=== PATIENT | female | born 1960 | race Caucasian/White ===

== ENCOUNTER → 2021-01-10 08:13 | Outpatient (CLI) | payer OTHER, SELFPAY ==
[2021-01-10 09:22] LABS: Hemoglobin A1C% w Est Avg Glu 5.1 % (4.0-6.0)
[2021-01-10 09:33] LABS: Creatine Kinase 123 U/L (30-135); Lactate (Lactic Acid) 0.8 mmol/L (0.7-2.1)
[2021-01-10 10:03] LABS: TSH w/ Reflex to FT4 3.96 uIU/mL (0.47-4.68)
[2021-01-10 10:23] LABS: Vitamin B12 495 pg/mL (239-931)
[2021-01-11 17:42] LABS: Treponema pallidum Antibodies Non Reactive (Non Reactive)
[2021-01-12 13:16] LABS: Aldolase 7.4 U/L (3.3-10.3)
[2021-01-12 14:08] LABS: ANA Screen, IFA Negative (.); Alpha 1 Globulin 0.2 g/dL (0.0-0.4); Alpha 2 Globulin 0.7 g/dL (0.4-1.0); Beta 1 Globulin 1.1 g/dL (0.7-1.3); Gamma Globulin 1.3 g/dL (0.4-1.8); Protein, Total 7.3 g/dL (6.0-8.5)
[2021-01-13 12:07] LABS: Gamma-Tocopherol 2.9 mg/L (0.5-4.9)
[2021-01-13 18:04] LABS: Antimyeloperoxidase AB <9.0 U/mL (0.0-9.0); Antiproteinase 3 AB 8.8 U/mL (0.0-3.5); Atypical P-ANCA Titer <1:20 titer (Neg:<1:20); C-ANCA Titer <1:20 titer (Neg:<1:20); P-ANCA Titer <1:20 titer (Neg:<1:20)
== END ==
PROVIDERS: PCP Family Medicine; Referring Provider Psychiatry & Neurology Neuromuscular Medicine; Visit Provider Psychiatry & Neurology Neuromuscular Medicine
DX: R27.8 Other lack of coordination (principal)
CPT/HCPCS: 36415; 82085; 82525; 82550; 82607; 82784; 83036; 83516; 83519; 83520; 83605; 84155; 84165; 84443; 84446; 86038; 86255; 86256; 86780

== ENCOUNTER 2023-03-21 13:52 | Emergency (ER) | payer OTHER, SELFPAY ==
[2023-03-21 14:07] VITALS: BP 182/76; PULSE 96; RESP 18; TEMP 36.5; O2SAT 100; BMI 25.5
--- NOTE | 2023-03-21 14:16 | ED_ITS ---
HPI - Abdominal Pain <Yann Jacobson PA-C - Last Filed: 03/21/23 16:25> General Chief Complaint: Abdominal Pain Stated Complaint: fever, abdominal pain Time Seen by Provider: 03/21/23 14:16 Source: patient Mode of arrival: Ambulatory History of Present Illness HPI narrative: This is a 62-year-old female presents emergency department due to intermittent epigastric abdominal pain for the last year with intermittent episodes she would. She states that she was usually able to ?calm down? the episodes after not eating for a couple of days. She states that this episode is slightly more severe with some nausea as well as fevers of 102? F. Denies any diarrhea constipation. Denies any significant chest pain or shortness of breath. Denies any gastrointestinal surgeries. States it feels like a burning sensation in her epigastric area as well as occasionally in the left upper quadrant. Related Data Previous Rx's Medication Instructions Recorded ondansetron HCl 4 mg tablet 4 mg PO Q8H PRN nausea and 03/21/23 vomiting #20 tabs pantoprazole 40 mg tablet,delayed 40 mg PO DAILY #14 tabs 03/21/23 release Allergies Allergy/AdvReac Type Severity Reaction Status Date / Time Sulfa (Sulfonamide Allergy Intermediate Hives Verified 03/21/23 16:38 Antibiotics) Review of Systems <VINOD Damian Last Filed: 03/21/23 16:25> Review of Systems Narrative: GENERAL: Reports fevers Denies chills, fatigue, malaise, , sweats. HEENT: Denies sinus pain, ear pain, sore throat, difficulty swallowing, dizziness. RESPIRATORY: Denies dyspnea, cough, wheezing, hemoptysis, sputum. CARDIOVASCULAR: Denies chest pain, palpitations, orthopnea, edema, GASTROINTESTINAL: Reports abdominal pain nausea, Denies , vomiting, in, diarrhea, constipation, melena. : Denies dysuria, frequency, incontinence, hematuria, urinary retention. MUSCULOSKELETAL: denies weakness, joint pain, or bony pain SKIN: Denies rash, skin lesions, or other NEUROLOGIC: Denies weakness, headache, numbness, change in speech, confusion, seizures, incoordination. PSYCHIATRIC: No concerning psychosocial issues. 12 point review of systems is negative except for those stated above Patient History <VINOD Damian Last Filed: 03/21/23 16:25> Social History Smoking Status: Unknown if ever smoked Smoking Status: Unknown if ever smoked alcohol intake frequency: other Substance Use Type: does not use Exam <Yann Jacobson PA-C - Last Filed: 03/21/23 16:25> Narrative Exam Narrative: GENERAL: Well-developed patient, in mild distress. HEAD: Atraumatic. Normocephalic. EYES: Pupils equal round and reactive. Extraocular motions intact. No scleral icterus. No injection or drainage. ENT: Nose without bleeding, purulent drainage. Throat without erythema, tonsillar hypertrophy or exudate. Airway patent. NECK: Trachea midline. Non tender EXTREMITIES: No edema or joint tenderness. NEURO: AOx3. SKIN: No rash or erythema of visible areas CARDIOVASCULAR: Regular rate and rhythm without murmurs, gallops, or rubs. RESPIRATORY: Clear to auscultation. Breath sounds equal bilaterally. No wheezes, rales, or rhonchi. GASTROINTESTINAL: Mild tenderness to palpation to left upper quadrant BACK: Nontender without deformity or crepitance. No flank tenderness. Initial Vital Signs Initial Vital Signs: Vital Signs Temperature 97.7 F 03/21/23 14:07 Pulse Rate 96 H 03/21/23 14:07 Respiratory Rate 18 03/21/23 14:07 Blood Pressure 182/76 H 03/21/23 14:07 Pulse Oximetry 100 03/21/23 14:07 Oxygen Delivery Method Room Air 03/21/23 14:07 <Quita Ball MD - Last Filed: 03/21/23 17:04> Initial Vital Signs Initial Vital Signs: Vital Signs Temperature 97.7 F 03/21/23 14:07 Pulse Rate 96 H 03/21/23 14:07 Respiratory Rate 18 03/21/23 14:07 Blood Pressure 182/76 H 03/21/23 14:07 Pulse Oximetry 100 03/21/23 14:07 Oxygen Delivery Method Room Air 03/21/23 14:07 Course <Yann Jacobson PA-C - Last Filed: 03/21/23 16:25> Orders Ordered: ED Orders 03/21/23 14:15 US abdomen limited Stat 03/21/23 14:45 Complete Blood Count AUTO DIFF Stat Comprehensive Metabolic Panel Stat Lipase Stat 03/21/23 14:50 CT abdomen pelvis w con Stat 03/21/23 14:59 EKG-12 Lead Stat 03/21/23 15:36 Urine Microscopic Stat Discontinued Medications Ondansetron HCl (Ondansetron 4 Mg Odt) 4 mg PO NOW PRN PRN Reason: Nausea And Vomiting Ondansetron HCl (Ondansetron 4 Mg/2 Ml Inj) 4 mg IV NOW PRN PRN Reason: Nausea And Vomiting Consultations Consultation #1: [id number]: Verbal report from technical product manager stated normal gallbladder exam. Vital Signs Vital signs: Vital Signs - 8 hr 03/21/23 14:07 03/21/23 15:52 Temperature 97.7 F Pulse Rate 96 H 84 Respiratory Rate 18 16 Blood Pressure 182/76 H 127/72 Pulse Oximetry 100 97 Oxygen Delivery Method Room Air Room Air <Quita Ball MD - Last Filed: 03/21/23 17:04> Orders Ordered: ED Orders 03/21/23 14:15 US abdomen limited Stat 03/21/23 14:45 Complete Blood Count AUTO DIFF Stat Comprehensive Metabolic Panel Stat Lipase Stat 03/21/23 14:50 CT abdomen pelvis w con Stat 03/21/23 14:59 EKG-12 Lead Stat 03/21/23 15:36 Urine Microscopic Stat Discontinued Medications Ondansetron HCl (Ondansetron 4 Mg Odt) 4 mg PO NOW PRN PRN Reason: Nausea And Vomiting Ondansetron HCl (Ondansetron 4 Mg/2 Ml Inj) 4 mg IV NOW PRN PRN Reason: Nausea And Vomiting Vital Signs Vital signs: Vital Signs - 8 hr 03/21/23 14:07 03/21/23 15:52 Temperature 97.7 F Pulse Rate 96 H 84 Respiratory Rate 18 16 Blood Pressure 182/76 H 127/72 Pulse Oximetry 100 97 Oxygen Delivery Method Room Air Room Air MDM - Abdominal Pain <Yann Jacobson PA-C - Last Filed: 03/21/23 16:25> Lab Data 03/21/23 14:45 03/21/23 14:45 Labs: Lab Results 03/21/23 03/21/23 Range/Units 14:45 15:36 WBC 2.5 L (4.5-11.0) X10^3/uL RBC 4.78 (4.0-5.2) X10^6/uL Hgb 14.5 (12.0-16.0) g/dL Hct 41.8 (36-46) % MCV 87.4 (80-100) fL MCH 30.4 (26-34) PG MCHC 34.8 (30-36) % RDW 13.1 (11.6-14.8) % Plt Count 125 L (150-400) X10^3/uL Neut % (Auto) Not Reportable Lymph % (Auto) Not Reportable [place] % (Auto) Not Reportable Eos % (Auto) Not Reportable Baso % (Auto) Not Reportable Lymph # (Auto) Not Reportable [place] # (Auto) Not Reportable Baso # (Auto) Not Reportable Total Counted 100 Seg Neutrophils % 54.0 (38-70) % Lymphocytes % (Manual) 34.0 (25-45) % Monocytes % (Manual) 11.0 (2-11) % Basophils % (Manual) 1.0 (0-1) % Neutrophils # (Manual) 1350 L (6860-7418) /uL Platelet Estimate Decreased on smear RBC Morphology Normal morphology Sodium 136 L (137-145) mmol/L Potassium 3.8 (3.4-5.1) mmol/L Chloride 101 (98-107) mmol/L Carbon Dioxide 25 (22-32) mmol/L BUN 19 H (7-17) mg/dL Creatinine 0.74 (0.52-1.04) mg/dL Estimated GFR > 60 (>60) mL/min BUN/Creatinine Ratio 25.7 H (6-22) Glucose 88 (80-110) mg/dL Calcium 9.6 (8.4-10.2) mg/dL Total Bilirubin 1.0 (0.2-1.3) mg/dL AST 74 H (14-36) IU/L ALT 63 H (<35) IU/L Alkaline Phosphatase 82 (38-126) U/L Total Protein 8.4 H (6.3-8.2) g/dL Albumin 4.6 (3.5-5.0) g/dL Globulin 3.8 (1.7-4.1) g/dL Albumin/Globulin Ratio 1.2 (1.0-2.8) Lipase 76 (23-300) U/L Urine RBC 0-1/hpf (0-5/HPF) Urine WBC 0-1/hpf (0-5/HPF) Ur Squamous Epith Cells 5-10 /hpf H (0-5/HPF) Urine Bacteria Occasional (0-1) (None) Hyaline Casts 1-5/lpf (None) Urine Mucus 2+ H (Negative) Ur Culture Indicated? Cult not indicated Point of care testing: Urine Dip Bedside Urine Glucose Negative Bedside Urine Bilirubin - Negative Bedside Urine Ketone + 15 Urine Specific [place] 1.030 Bedside Urine Occult Blood - Negative Bedside Urine pH 6.0 Bedside Urine Protein - Negative Bedside Urine Urobilinogen - Negative Bedside Urine Nitrite - Negative Bedside Urine Leukocytes - Negative Esterase Imaging Data US - abdomen: Radiologist's Impression: [address] [address] Ultrasound Report Signed Patient: Jesusita Ruiz MR#: [id number] : 1960 Acct:[id number] Age/Sex: 62 / F Date of Service: 03/21/23 Loc: ED Accession Number: [id number] Procedure: US abdomen limited Ordering Provider: Yann Jacobson P.A-C PROCEDURE: US ABDOMEN LIMITED INDICATIONS: RUQ pain, r/o cholecystitis TECHNIQUE: Real-time scanning was performed of the abdominal and retroperitoneal organs, with image documentation. COMPARISON: None. FINDINGS: Liver: Liver is normal in size and homogeneous in echotexture. Liver parenchyma is mildly diffusely echogenic. Main portal vein is patent with hepatopedal flow. Gallbladder: No gallstones. No wall thickening. No pericholecystic edema. Negative sonographic Cisneros's sign. Biliary ducts: Intrahepatic bile ducts are non-dilated. Extrahepatic bile duct caliber measures 6 mm. Normal is 6-7 mm or less in diameter, or 10 mm or less post-cholecystectomy. Pancreas: Not well seen secondary to bowel gas. Right Kidney: Normal in size and echotexture, without hydronephrosis. No solid masses. IVC: Intrahepatic inferior vena cava is patent where visualized. Miscellaneous: No free abdominal fluid. IMPRESSION: 1. No sonographic evidence acute cholecystitis or sonographic findings to explain patient's pain. 2. Liver parenchyma is mildly echogenic which may be seen in the setting of parenchymal disease such as steatosis. Dictated by: Shun Wallace M.D. on 03/21/2023 at 15:00 Approved by: Shun Wallace M.D. on 03/21/2023 at 15:02 CT scan - abdomen/pelvis: Radiologist's Impression: [address] [address] [address] Scan Report Signed Patient: Jesusita Ruiz MR#: [id number] : 1960 Acct:[id number] Age/Sex: 62 / F Date of Service: 03/21/23 Loc: ED Accession Number: [id number] Procedure: CT abdomen pelvis w con Ordering Provider: Yann Jacobson P.A-C PROCEDURE: CT ABDOMEN PELVIS W CON INDICATIONS: Epigastric abdominal pain TECHNIQUE: After the administration of intravenous contrast, axial sections acquired from the lung bases to the pubic symphysis. Coronal and sagittal reformats were performed. For radiation dose reduction, the following was used: automated exposure control, adjustment of mA and/or kV according to patient size. COMPARISON: None. FINDINGS: Image quality: Diagnostic. Lower Chest: No significant findings. ABDOMEN: Liver: Low-density 13 mm focus within the medial segment left hepatic lobe with possible vague multinodular peripheral enhancement. Gallbladder: No radiopaque gallstones or wall thickening. Biliary ducts: No biliary dilation. Pancreas: No ductal dilation. Spleen: Size is within normal limits. Adrenal Glands: No adrenal nodules. Kidneys and Ureters: No hydronephrosis. No solid mass. No complex renal cystic lesion which requires follow up. Stomach and Bowel: Small hiatal hernia. Stomach and small bowel are within normal limits. Appendix is normal. Colon is nondistended. Peritoneum: No abnormal intraperitoneal fluid. No free air. Ventral Wall: No hernia. Abdominal Nodes: No retroperitoneal or mesenteric adenopathy by size criteria. Vessels: Aorta and inferior vena cava are normal in size. PELVIS: Pelvic Organs: Unremarkable. Bladder: Decompressed. Pelvic Nodes: No enlarged lymph nodes. Miscellaneous: No inguinal hernias are seen. Bones: No aggressive osseous abnormality. IMPRESSION: 1. No acute process. 2. Normal appendix. 3. Possible left hepatic lobe hemangioma. Initial further assessment with nonemergent outpatient follow-up liver protocol MRI is recommended to rule out less likely, more aggressive etiologies. 4. Small hiatal hernia. Dictated by: Senia Renee M.D. on 03/21/2023 at 15:48 Approved by: Senia Renee M.D. on 03/21/2023 at 15:52 MDM Narrative Medical decision making narrative: ED course: This is a 62-year-old female presents for department due to intermittent abdominal pain for the last year. During triage patient stated that she would right upper quadrant abdominal pain and abdominal ultrasound was ordered which was unremarkable. During my exam patient did not describe any right upper quadrant abdominal pain although did describe some epigastric and left upper quadrant abdominal pain. Shared decision-making utilized and CT abdomen and pelvis ordered which showed no acute findings but did show a possible liver hemangioma which I recommended she follow up with the primary care provider for outpatient workup. Lab work today was reassuring. Did show mild leukopenia as well as thrombocytopenia which I recommended she follow up with the primary care provider as well. Based on clinical description of symptoms may be due to a possible ulcer. Pantoprazole trial prescribed. Lipase within normal limits CC: Abdominal pain Complicating co-morbidities: None Data collected from: Previous notes Medical records reviewed: Patient has not been to this emergency department in the past. Differential considered, but not limited to: Cholecystitis, pancreatitis, peptic ulcer disease Exam documented above, pertinent findings include: Left upper quadrant epigastric tenderness to palpation Lab Test results independently reviewed as above. Pertinent findings: As above Imaging studies independently reviewed: Right upper quadrant ultrasound negative for any gallbladder abnormalities. CT abdomen and pelvis reassuring showed no acute findings Scores Used: None MIPS Elements: None Consultations: None Treatments: None Re-evaluations: None Discussion: Discussed plan with the patient was comfortable with the plan Diagnosis: Abdominal pain Disposition: see below, along with detailed discharge instructions that have been reviewed with patient as well as indications for ED re-evaluation and additional outpatient follow up <Quita Ball MD - Last Filed: 03/21/23 17:04> Lab Data Labs: Lab Results 03/21/23 03/21/23 Range/Units 14:45 15:36 WBC 2.5 L (4.5-11.0) X10^3/uL RBC 4.78 (4.0-5.2) X10^6/uL Hgb 14.5 (12.0-16.0) g/dL Hct 41.8 (36-46) % MCV 87.4 (80-100) fL MCH 30.4 (26-34) PG MCHC 34.8 (30-36) % RDW 13.1 (11.6-14.8) % Plt Count 125 L (150-400) X10^3/uL Neut % (Auto) Not Reportable Lymph % (Auto) Not Reportable [place] % (Auto) Not Reportable Eos % (Auto) Not Reportable Baso % (Auto) Not Reportable Lymph # (Auto) Not Reportable [place] # (Auto) Not Reportable Baso # (Auto) Not Reportable Total Counted 100 Seg Neutrophils % 54.0 (38-70) % Lymphocytes % (Manual) 34.0 (25-45) % Monocytes % (Manual) 11.0 (2-11) % Basophils % (Manual) 1.0 (0-1) % Neutrophils # (Manual) 1350 L (3834-4998) /uL Platelet Estimate Decreased on smear RBC Morphology Normal morphology Sodium 136 L (137-145) mmol/L Potassium 3.8 (3.4-5.1) mmol/L Chloride 101 (98-107) mmol/L Carbon Dioxide 25 (22-32) mmol/L BUN 19 H (7-17) mg/dL Creatinine 0.74 (0.52-1.04) mg/dL Estimated GFR > 60 (>60) mL/min BUN/Creatinine Ratio 25.7 H (6-22) Glucose 88 (80-110) mg/dL Calcium 9.6 (8.4-10.2) mg/dL Total Bilirubin 1.0 (0.2-1.3) mg/dL AST 74 H (14-36) IU/L ALT 63 H (<35) IU/L Alkaline Phosphatase 82 (38-126) U/L Total Protein 8.4 H (6.3-8.2) g/dL Albumin 4.6 (3.5-5.0) g/dL Globulin 3.8 (1.7-4.1) g/dL Albumin/Globulin Ratio 1.2 (1.0-2.8) Lipase 76 (23-300) U/L Urine RBC 0-1/hpf (0-5/HPF) Urine WBC 0-1/hpf (0-5/HPF) Ur Squamous Epith Cells 5-10 /hpf H (0-5/HPF) Urine Bacteria Occasional (0-1) (None) Hyaline Casts 1-5/lpf (None) Urine Mucus 2+ H (Negative) Ur Culture Indicated? Cult not indicated Point of care testing: Urine Dip Bedside Urine Glucose Negative Bedside Urine Bilirubin - Negative Bedside Urine Ketone + 15 Urine Specific [place] 1.030 Bedside Urine Occult Blood - Negative Bedside Urine pH 6.0 Bedside Urine Protein - Negative Bedside Urine Urobilinogen - Negative Bedside Urine Nitrite - Negative Bedside Urine Leukocytes - Negative Esterase Discharge Plan Departure Patient Disposition: Home Clinical Impression: Abdominal pain Activity Restrictions/Additional Instructions: Thank you for coming to the [facility] Emergency Department today. As we discussed your ultrasound showed no evidence of any kind of gallbladder abnormality. Your CT abdomen and pelvis showed no acute emergent findings. It did note a small ?hemangioma on your liver that would benefit from outpatient workup. Please discussed with the primary care provider for possible further workup. As we discussed your white blood cell count as well as platelet counts appeared to be a little lower than the normal ranges. This maybe chronic for you. Please also discuss this with the primary care provider for further workup. Your other lab work today was unremarkable. As we discussed the symptoms maybe due to a possible ulcer. You may take the medication as prescribed to see if this helps with your symptoms. Please return to the emergency department if you develop any significant worsening abdominal pain or any other concerning signs or symptoms. I hope you feel better soon. Please follow up with your primary care provider within a week if your symptoms continue. If you do not have a primary care provider please contact the [facility] Resource line at [phone]. They will ask some questions about your medical history and help you get set up with a provider in the community. Prescriptions: New pantoprazole 40 mg tablet,delayed release (DR/EC) 40 mg PO DAILY Qty: 14 0RF ondansetron HCl 4 mg tablet 4 mg PO Q8H PRN (Reason: nausea and vomiting) Qty: 20 0RF Referrals: Miscellaneous,DoctorMD [Primary Care Provider] - Stand Alone Forms: Patient Portal/API ED Sign-out <Quita Ball MD - Last Filed: 03/21/23 17:04> Cosign ED Attending Virgenature Attestation: I did not see this patient. I was available all times for consultation.
--- NOTE | 2023-03-21 14:50 | DI.CT.S_ITS ---
PROCEDURE: CT ABDOMEN PELVIS W CON INDICATIONS: Epigastric abdominal pain TECHNIQUE: After the administration of intravenous contrast, axial sections acquired from the lung bases to the pubic symphysis. Coronal and sagittal reformats were performed. For radiation dose reduction, the following was used: automated exposure control, adjustment of mA and/or kV according to patient size. COMPARISON: None. FINDINGS: Image quality: Diagnostic. Lower Chest: No significant findings. ABDOMEN: Liver: Low-density 13 mm focus within the medial segment left hepatic lobe with possible vague multinodular peripheral enhancement. Gallbladder: No radiopaque gallstones or wall thickening. Biliary ducts: No biliary dilation. Pancreas: No ductal dilation. Spleen: Size is within normal limits. Adrenal Glands: No adrenal nodules. Kidneys and Ureters: No hydronephrosis. No solid mass. No complex renal cystic lesion which requires follow up. Stomach and Bowel: Small hiatal hernia. Stomach and small bowel are within normal limits. Appendix is normal. Colon is nondistended. Peritoneum: No abnormal intraperitoneal fluid. No free air. Ventral Wall: No hernia. Abdominal Nodes: No retroperitoneal or mesenteric adenopathy by size criteria. Vessels: Aorta and inferior vena cava are normal in size. PELVIS: Pelvic Organs: Unremarkable. Bladder: Decompressed. Pelvic Nodes: No enlarged lymph nodes. Miscellaneous: No inguinal hernias are seen. Bones: No aggressive osseous abnormality. IMPRESSION: 1. No acute process. 2. Normal appendix. 3. Possible left hepatic lobe hemangioma. Initial further assessment with nonemergent outpatient follow-up liver protocol MRI is recommended to rule out less likely, more aggressive etiologies. 4. Small hiatal hernia. Dictated by: Senia Renee M.D. on 03/21/2023 at 15:48 Approved by: Senia Renee M.D. on 03/21/2023 at 15:52
[2023-03-21 14:57] LABS: Hematocrit 41.8 % (36-46); Hemoglobin 14.5 g/dL (12.0-16.0); Mean Corpuscular HGB Conc 34.8 % (30-36); Mean Corpuscular Hemoglobin 30.4 PG (26-34); Mean Corpuscular Volume 87.4 fL (80-100); Platelet Count 125 X10^3/uL (150-400); Red Blood Cell Count 4.78 X10^6/uL (4.0-5.2); Red Cell Distribution Width 13.1 % (11.6-14.8); White Blood Cell Count 2.5 X10^3/uL (4.5-11.0)
[2023-03-21 15:04] LABS: Add Manual Diff / Slide Review YES
[2023-03-21 15:21] LABS: Alanine Aminotransferase 63 IU/L (<35); Albumin 4.6 g/dL (3.5-5.0); Albumin Globulin Ratio 1.2 (1.0-2.8); Alkaline Phosphatase 82 U/L (38-126); Aspartate Aminotransferase 74 IU/L (14-36); BUN Creatinine Ratio 25.7 (6-22); Blood Urea Nitrogen 19 mg/dL (7-17); Calcium 9.6 mg/dL (8.4-10.2); Carbon Dioxide 25 mmol/L (22-32); Chloride 101 mmol/L (98-107); Estimated Glomerular Filt Rate > 60 mL/min (>60); Globulin 3.8 g/dL (1.7-4.1); Glucose 88 mg/dL (80-110); HEMOLYSIS < 15 (0-50); Lipase 76 U/L (23-300); Potassium 3.8 mmol/L (3.4-5.1); Sodium 136 mmol/L (137-145); Total Protein 8.4 g/dL (6.3-8.2)
[2023-03-21 15:51] LABS: Bacteria Urine Occasional (0-1); Culture Indicated Urine Cult Not Indicated; Hyaline Casts Urine 1-5/LPF; Mucus Urine 2+ (Negative); RBC Urine 0-1/HPF (0-5/HPF); Squamous Epithelial Cell Urine 5-10 /HPF (0-5/HPF); WBC Urine 0-1/HPF (0-5/HPF)
[2023-03-21 15:52] VITALS: BP 127/72; PULSE 84; RESP 16; O2SAT 97
[2023-03-21 16:33] LABS: Neutrophils Absolute Manual 1350 /uL (3000-5900); Total Cells Counted 100
[2023-03-21 16:34] LABS: Platelet Estimate Decreased on smear; RBC Morphology Normal Morphology
== END 2023-03-21 16:26 | disposition home or self-care (01) ==
PROVIDERS: Emergency Provider Physician Assistant Medical
DX: R10.13 Epigastric pain (principal)
CPT/HCPCS: 36415; 74177; 76705; 80053; 81003; 81015; 83690; 85007; 85025; 93005; 93010; 99284; Q9967

== ENCOUNTER → 2025-02-11 17:18 | Outpatient (ROUT) | payer BC, SELFPAY | PROVIDERS: Visit Provider Registered Nurse | DX: L03.90 Cellulitis, unspecified (principal); B02.23 Postherpetic polyneuropathy; L71.8 Other rosacea; R21 Rash and other nonspecific skin eruption; L93.0 Discoid lupus erythematosus; M33.90 Dermatopolymyositis, unspecified, organ involvement unspecified; B02.9 Zoster without complications; Z79.899 Other long term (current) drug therapy | CPT/HCPCS: 87252 ==